=== PATIENT | male | born 1985 ===

== ENCOUNTER 2019-02-28 21:14 | Emergency (ER) | payer MEDICAID ==
[~2019-02-28] VITALS: Ht 167.6 cm; Wt 97.0 kg
[2019-03-01] MEDS ORDERED: IBUPROFEN 600MG TABLET PO ONE (01:15)
[2019-03-01 06:25] VITALS: BP 118/81
== END 2019-03-01 06:27 | disposition home or self-care (01) ==
LOC: ER 21:14
DX: B35.3 Tinea pedis (principal); Z59.0 Homelessness
CPT/HCPCS: 99282